=== PATIENT | female | born 1950 | race Caucasian/White ===

== ENCOUNTER → 2019-05-16 | Outpatient (CLI) | payer OTHER ==
[~2019-05-16] VITALS: Ht 157.5 cm; Wt 64.9 kg
[~2019-05-16] MED LIST: ALENDRONATE SOD70 MG PO; ASA81BEC PO; CALCIUM 500+D1 EAC2 PO; CO-ENZYME Q-1010 MG PO; GLUCOPHAGE XR500 MG PO; LISINOPRIL10 MG PO; MAGNESIUM250 M1 PO; MULTI FOR HER1 EAC2 PO; PIOGLITAZONE15 MG PO; PROBIOTIC1 EAC7 PO; VITAMIN D-32000 UNIT PO; ZOCOR20 MG PO
== END | disposition home or self-care (01) ==
LOC: GI 07:43
DX: Z12.11 Encounter for screening for malignant neoplasm of colon (principal); Z86.010 Personal history of colon polyps; K57.30 Diverticulosis of large intestine without perforation or abscess without bleeding; K64.8 Other hemorrhoids; I10 Essential (primary) hypertension; E78.5 Hyperlipidemia, unspecified; E11.9 Type 2 diabetes mellitus without complications; Z90.710 Acquired absence of both cervix and uterus; Z98.890 Other specified postprocedural states; Z79.899 Other long term (current) drug therapy; Z85.3 Personal history of malignant neoplasm of breast; Z91.041 Radiographic dye allergy status; Z88.8 Allergy status to other drugs, medicaments and biological substances; Z79.82 Long term (current) use of aspirin
CPT/HCPCS: 62110; 62900